=== PATIENT | female | born 1960 | race Caucasian/White ===

== ENCOUNTER → 2023-05-15 14:26 | Outpatient (CLI) | payer OTHER, SELFPAY ==
[2023-05-15 15:23] LABS: Alanine Aminotransferase 19 IU/L (<35); Albumin 4.4 g/dL (3.5-5.0); Albumin Globulin Ratio 1.3 (1.0-2.8); Alkaline Phosphatase 78 U/L (38-126); Aspartate Aminotransferase 31 IU/L (14-36); BUN Creatinine Ratio 30.9 (6-22); Bilirubin Total 0.8 mg/dL (0.2-1.3); Blood Urea Nitrogen 21 mg/dL (7-17); Calcium 9.5 mg/dL (8.4-10.2); Carbon Dioxide 26 mmol/L (22-32); Chloride 106 mmol/L (98-107); Estimated Glomerular Filt Rate > 60 mL/min (>60); Globulin 3.3 g/dL (1.7-4.1); Glucose 95 mg/dL (80-110); HEMOLYSIS < 15 (0-50); Potassium 4.2 mmol/L (3.4-5.1); Sodium 138 mmol/L (137-145); Total Protein 7.7 g/dL (6.3-8.2)
[2023-05-17 17:05] LABS: HIV 1 & 2 Ab/Ag 4th Gen Combo NEGATIVE (NEGATIVE); Hep C Virus Ab w/Reflex Quant NEGATIVE s/c (NEGATIVE)
== END ==
LOC: LAB 14:27
PROVIDERS: PCP Family Medicine; Referring Provider Family Medicine; Visit Provider Family Medicine
DX: Z00.00 Encounter for general adult medical examination without abnormal findings (principal); Z79.890 Hormone replacement therapy; Z90.710 Acquired absence of both cervix and uterus
CPT/HCPCS: 36415; 80053; 86803; 87389

== ENCOUNTER 2024-06-18 11:30 | Outpatient (RCR) | payer MEDICARE, OTHER, SELFPAY ==
--- NOTE | 2024-04-02 13:48 | OT.OPPOC ---
Physical, Occupational & Speech Therapy At [facility] Elizabeth Wolf [id number] 1960 Visit Care Team Role Provider Type Carly Pena MD Family Provider Physician Primary Care Provider Address: [address] [facility], [address] Fax: Max Kelley MD Attending Provider Physician Referring Provider Address: [address] [place] [address], [address] Occupational Therapy Plan of Care OT Outpatient Adult Evaluation Start: 04/02/24 10:48 Freq: Status: Active Protocol: Document 04/02/24 10:49 JELANI (Rec: 04/02/24 13:46 JELANI [id number]) General Information - Adult Visit Information Visit Number 1 Plan of Care Dates 04/02/24 - 05/28/24 Insurance Information Medicare Session Time Visit Start Date 04/02/24 Visit Start Time 10:45 Visit Stop Time 11:30 Setting Treatment Setting Outpatient Care Visit Type Note Type Initial Evaluation Referral Referring Physician Max Kelley Reason for Referral OA B 1st CMC, OA B wrist Identification Identification Confirmed Yes Identification Confirmed By name, MR Medical Information Medical History OA, fibromyalgia, headaches, jaw reconstruction sx, R medial knee sx, ankle/heel sx Patient Questionnaires Quick Dash- Upper Extremity Quick Dash UE Score 40.9 Quick Dash UE Impairment 40 to 59% Impaired (Score 40- 59) Quick Dash- Work and Sports Modules Quick Dash W&S Score W 50, S 62.5 Quick Dash Work and Sport Impairment 60 to 79% Impaired (Score 60- 79) Goals Objective Measurements Objective Measurements AROM 1st digit: IP R +10 to 42 , L +10 to 61; MP R -12 to 70, L 0 to 72; CMC PA R 35, L 40; CMC RA R 35, L 45 Wrist WFL all planes of mvmt Alfa measure: opposition R 10/10 (c p!), L 10/10 (c p!); retroposition R 1/4 (c p!), L 2/4 (c p!) Vilma R +, L - Froment's R +, L + Grind test R - L - UCL no laxity noted CMC no laxity noted, p! with assessing B Drapery And Upholstery Estimator: R 37, 37, 42 (avg 38.7#) ; L 35, 35, 35 (avg 35#) Pinch: lateral R 8#, L 8#; pincer R 3#, L 4#; 3 jaw R 4#, L 5.5# Treatment Treatment Pt educated on the importance of proper joint alignment. Pt has reduced webspacing, tx consisted of web space release . Pt educated on how to perform manually or with a clip. Pt should build up to 3- 5 minute hold on both hands. Pt then educated on web space release for skin and fascia, to be repeated 5-10 times. Finally pt performs butterfly retproposition mobilization to be held 3-5 minutes. Short Term Goals Short Term Goals 1. Pt will be I with initial HEP 2. Pt will improve retroposition by 1 grade for improved pain free use of thumb. 3. Pt will increase overall ROM of CMC by 10 deg B for improved grasping. 4. Pt will report no pain with opposition Draw Frame Runner Goals Draw Frame Runner Goals 1. Pt will be I with advanced thumb stability HEP 2. Pt will improve retropostion by 2 grade for improved pain free use of thumb. 3. Pt will increase increase overall ROM of CMC by 20 deg of movement B for improved object manipulation. 4. Pt will report improved perceived function with QuickDash by 15 points or better. 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 Pt reports having B cortisone injections 6 weeks ago. Pt reports relief last three weeks until she had her first client. Pt reports that she has constant pain and describes her pain as constant and at times stabbing. At times pt?s pain cant? be ignored (08/26) and is otherwise 1-2/10. 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 Pt also enjoys weight lifting and yoga . Pt weight lifts both with free weights and weighted machine. She reports having to change her hand position with many weighted activities as she is not able to grab around the bars. Pt reports difficulty with using her hands for all household and BADL tasks. See above for perceived limitations with respect to QuickDash. Pt reports having no difficulty with typing tasks. On observation, pt?s B thumbs have increased CMC adduction, MCP hyper-extension and IP hyper-extension. When taking goniometric measurements, pt self corrects initial hyper- extension position. Pt is tender on palpation of entire CMC joint B with R>L for p!. Pt has significant limitation in retroposition B with R > L. Pts 1st metacarpal seems to have subluxed volarly on trapezium. Skilled OT services are appropriate to assist pt in improved thumb stability and joint mechanics , educate on activity modification and taping or splint wearing, joint mobilization, strengthening, neuromuscular re-education, pain mgmt., and improved BADL/ IADL tasks. Reviewed with Patient Goals,Home Exercise Program Patient Understanding Excellent Plan Length of treatment (weeks) 8 Plan of Care Start Date 04/02/24 Plan of Care End Date 05/28/24 Treatment Frequency Twice a Week Treatment Duration 45 Minutes Therapeutic Contents Active Range of Motion,Client Education,Functional Activities,Home Exercise Program,Joint Protection, Manual Therapy,Education, Neuromuscular Re-Education, Orthosis,Self-Care,Splinting, Stretching/Flexibility Activities,Therapeutic Activities,Therapeutic Exercises,Modalities Modalities As Needed Types of Modalities Cyrotherapy Additional Types of Modalities PB Patient Instruction Home Exercise Program,Plan of Care,Questions/Concerns Functional Wrist/Hand Scan Hand Side Sensory Assessment Sensory Profile2 Electronically Signed by: Leonela Gardiner OT 04/02/24 3428 If you are in agreement with this Plan of Care, please return a signed and dated copy. I have reviewed this Plan of Care and certify that the skilled therapy services above are required to meet the patient?s needs. Physician Signature Date Printed Name and Credentials Clinical Instructor Signature Printed Name and Credentials
--- NOTE | 2024-04-09 11:16 | OT.OP.TRT ---
Visit Care Team Role Provider Type Carly Pena MD Family Provider Physician Primary Care Provider Specialty: Family Practice TUTORING ASSISTANT Address: [facility], [place], [address] Fax: Email: [email or web address] Max Kelley MD Attending Provider Physician Referring Provider Specialty: Orthopedics Orthopedic Surgery Address: [address] [place] [address], [address] Email: [email or web address] Occupational Therapy Treatment Note OT Outpatient Treatment Note - Adult Start: 04/02/24 10:48 Freq: Status: Active Protocol: Document 04/09/24 08:58 JELANI (Rec: 04/09/24 11:15 GRANTLUIS FALEKMARISELA [id number]) OT Outpatient Adult Treatment Note Session Time Visit Start Date 04/09/24 Visit Start Time 09:00 Visit Stop Time 09:45 Visit Information Visit Number 2 Plan of Care Dates 04/02/24 - 05/28/24 Insurance Information Medicare Setting Treatment Setting Outpatient Care Visit Type Note Type Treatment Note - Subjective Identification Type Name Identification Reconciled With Medical Record Observations Pt reports she has been doing her exercises. She reports having pain with butterfly retroposition. After re- education pt states I may have been doing it wrong. I had a two hour facial which is my most difficult facial. I notice I use my left phone almost exclusively on cell phone. Chief Complaint(s) Loss of Motion/Stiffness,Pain Effect on Activity,Restricts - Objective Short Term Goals 1. Pt will be I with initial HEP 2. Pt will improve retroposition by 1 grade for improved pain free use of thumb. 3. Pt will increase overall ROM of CMC by 10 deg B for improved grasping. 4. Pt will report no pain with opposition Executive Personal Assistant Goals 1. Pt will be I with advanced thumb stability HEP 2. Pt will improve retropostion by 2 grade for improved pain free use of thumb. 3. Pt will increase increase overall ROM of CMC by 20 deg of movement B for improved object manipulation. 4. Pt will report improved perceived function with QuickDash by 15 points or better. - Exercises 3 Descriptor retroposition mobilization king reinier Bañuelos x 3 minutes 2 Descriptor web space: web space to web space release with active stretch x10 B 1 Descriptor stability: 1st DI rubber band 30x B Manual Therapy Manual Therapy B thumb adductor STM, grade II CMC distraction and oscillation for pain relief, PROM B thumb CMC into palmar abduction and radial abduction as tolerated - Assessment Patient Response to Treatment Excellent Rehabilitation Potential Good Impairments Identified ADLs,Body Mechanics, Coordination/Dexterity, Flexibility,Functional Activities,Pain,Weakness,Range of Motion,Meaningful Activities,Stiffness,Soft Tissue Mobility Progress Towards Goals Good Progress Assessment of Improvement OT began educating pt on activity modification and splinting vs taping options. 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 She is willing to consider both for task specific uses like when doing yoga or weight training. Pt was performing butterfly mobilization with excessive force following some discussion with pt. OT asked pt to hold this exercises and instead perform kerry reinier mobilization until OT can further review correct performance of butterfly. OT reviewed pts HEP. Cont per established POC. Reviewed with Patient/Caregiver Goals Patient/Caregiver Understanding Good - Plan Therapy Recommendations Continue with Current Program Amount of Therapy Recommended 2 Months Frequency of Treatment Twice a Week Length of Session 45 Minutes Therapeutic Contents Active Range of Motion,Client Education,Functional Activities,Home Exercise Program,Joint Protection, Manual Therapy,Education, Neuromuscular Re-Education, Orthosis,Self-Care,Splinting, Stretching/Flexibility Activities,Therapeutic Activities,Therapeutic Exercises,Modalities Modalities As Needed Types of Modalities Cyrotherapy Additional Types of Modalities PB
--- NOTE | 2024-04-11 13:10 | OT.OP.TRT ---
Visit Care Team Role Provider Type Carly Pena MD Family Provider Physician Primary Care Provider Specialty: Family Practice CONSTRUCTION GRIP Address: [facility] [place], [address] Fax: Email: [email or web address] Max Kelley MD Attending Provider Physician Referring Provider Specialty: Orthopedics Orthopedic Surgery Address: [address] [place] [address], [address] Email: [email or web address] Occupational Therapy Treatment Note OT Outpatient Treatment Note - Adult Start: 04/02/24 10:48 Freq: Status: Active Protocol: Document 04/11/24 10:49 JELANI (Rec: 04/11/24 13:10 JELANI [id number]) OT Outpatient Adult Treatment Note Session Time Visit Start Date 04/11/24 Visit Start Time 10:45 Visit Stop Time 10:25 - Subjective Identification Type Name Identification Reconciled With Medical Record Observations On 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 Pt reports the combination of therapy and the facial resulted in increased pain. Pt reports pain at worse during today's tx at 3-4/10 with R>L. Chief Complaint(s) Loss of Motion/Stiffness,Pain Effect on Activity,Restricts - Objective Short Term Goals 1. Pt will be I with initial HEP 2. Pt will improve retroposition by 1 grade for improved pain free use of thumb. 3. Pt will increase overall ROM of CMC by 10 deg B for improved grasping. 4. Pt will report no pain with opposition Care Home Goals 1. Pt will be I with advanced thumb stability HEP 2. Pt will improve retropostion by 2 grade for improved pain free use of thumb. 3. Pt will increase increase overall ROM of CMC by 20 deg of movement B for improved object manipulation. 4. Pt will report improved perceived function with QuickDash by 15 points or better. - Treatment 2 Descriptor education: OT educates pt on splint options, primarily OA CMC splint and ring splints for other IP concerns of pt. 1 Descriptor OT educates pt on kinesio taping strategy options for improved stability at CMC. 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 OT educated pt on kinesio tape, wearing schedule, how to self apply, and how to safely remove. On R side, OT applied more extensive taping technique. 1 wide kineso tape 12 long applied starting at dorsal CMC, 25% stretch along CMC joint line to start of web space, no stretch from webspace to rejoining tape origin. Then hand placed in c shape with slight ulnar deviation at tape had 25% stretch ending mid forearm. A second 1 wide 10 strip applied at bace of CMC volarly ending mid forearm with 25% stretch. L CMC simple taping strategy with two 1 wide strips 4 long, OT applies first strip strating at dorsal CMC, 50-75% stretch along CMC joint line while hand held in c position. OT educated pt and pt applied second piece of tape with min A. Exercises 3 Descriptor retroposition mobilization butterfly B x 3 minutes 2 Descriptor web space: 1 Descriptor stability: Manual Therapy Manual Therapy B thumb adductor STM, grade II CMC distraction and oscillation for pain relief, PROM B thumb CMC into palmar abduction and radial abduction as tolerated - Assessment Patient Response to Treatment Excellent Rehabilitation Potential Good Impairments Identified ADLs,Body Mechanics, Coordination/Dexterity, Flexibility,Functional Activities,Pain,Weakness,Range of Motion,Meaningful Activities,Stiffness,Soft Tissue Mobility Progress Towards Goals Good Progress Assessment of Improvement OT re-discussed taping options with pt, due to pain following last tx and facial client, pt agreed to try both a simple and more advanced taping strategy to see if either will provide some relief and stability. OT eduates pt thoroughly on all aspects of kinesio taping and proviced hand outs and instructions on how to self tape in needed. Pt reports some immediate comfort following taping. Following taping pt performed strictly supervised butterfly retroposition mobilization, pt c/o increased pain at CMC following this. Pt notes that she gets distracted and moves increasing the pressure. Pt to perform kerry reinier instead moving forward for improved retroposition. Pt reports understanding benefit of STM for adductor release to improve web spacing, but also reports increased pain following STM at 3-4/10. Pt's pain reduces within a few minutes following. OT plans to discuss activity modification and splinting options further with pt in next several treatments. Cont per established POC. Reviewed with Patient/Caregiver Goals Patient/Caregiver Understanding Good - Plan Therapy Recommendations Continue with Current Program Amount of Therapy Recommended 2 Months Frequency of Treatment Twice a Week Length of Session 45 Minutes Therapeutic Contents Active Range of Motion,Client Education,Functional Activities,Home Exercise Program,Joint Protection, Manual Therapy,Education, Neuromuscular Re-Education, Orthosis,Self-Care,Splinting, Stretching/Flexibility Activities,Therapeutic Activities,Therapeutic Exercises,Modalities Modalities As Needed Types of Modalities Cyrotherapy Additional Types of Modalities PB
--- NOTE | 2024-04-28 09:58 | OT.OP.TRT ---
Visit Care Team Role Provider Type Carly Pena MD Family Provider Physician Primary Care Provider Specialty: Family Practice DEVELOPMENT ADVISOR Address: [address], [place], [address] Fax: Email: [email or web address] Max Kelley MD Attending Provider Physician Referring Provider Specialty: Orthopedics Orthopedic Surgery Address: [address] [place] [address], [address] Email: [email or web address] Occupational Therapy Treatment Note OT Outpatient Treatment Note - Adult Start: 04/02/24 10:48 Freq: Status: Active Protocol: Document 04/28/24 09:00 GRANTSHORTY (Rec: 04/28/24 09:58 GRANTLUIS FAJIT [id number]) OT Outpatient Adult Treatment Note Session Time Visit Start Date 04/28/24 Visit Start Time 09:00 Visit Stop Time 09:45 Visit Information Visit Number 4 Plan of Care Dates 04/02/24 - 05/28/24 Insurance Information Medicare Setting Treatment Setting Outpatient Care Visit Type Note Type Treatment Note - Subjective Identification Type Name Identification Reconciled With Medical Record Observations There were a few days that were bad but overall it hasn't been bad. Pt reports it's been difficult with doing weights, such as doing a chest press and curls. I find myself adjusting. I can manage it. Pt reports that she also has pain when performing downward dog position. Pt tried kinesio tape for several days. She reports that it was peeling up and became an annoyance. Pt reports that if she tries it again, she will do the short version. Pt denies pain at start and end of tx. Chief Complaint(s) Loss of Motion/Stiffness,Pain Effect on Activity,Restricts - - Treatment 1 Descriptor education: OT educates pt on splint options, primarily OA CMC splint. OT also educates pt on possible modifications for desired exercise tasks ( weight lifting and yoga). Exercises 3 Descriptor retroposition mobilization king reinier B x 4 minutes 2 Descriptor web space: web space to web space release with active stretch x5 B 1 Descriptor stability: closed chain palmar abd x 30 B CMC stabilization open mouth position x 30 B 1st DI rubber band x 30 B Manual Therapy Manual Therapy B thumb adductor STM, grade II CMC distraction and oscillation for pain relief, PROM B thumb CMC into palmar abduction and radial abduction as tolerated - Assessment Patient Response to Treatment Excellent Rehabilitation Potential Good Impairments Identified ADLs,Body Mechanics, Coordination/Dexterity, Flexibility,Functional Activities,Pain,Weakness,Range of Motion,Meaningful Activities,Stiffness,Soft Tissue Mobility Progress Towards Goals Good Progress Assessment of Improvement OT educated pt on pre fabricated splint/brace options for improved support of her thumb. OT primarily recommends CMC OA splint. Pt appears interested in ordering these for daily use. OT discussed that initially she can wear them for all daily activities, and that over time the goal would be to wear them prn instead. Pt verbalized understanding. Pt requires occasional vc/tc to perform exercises with correct form and to isolate desired movement pattern. OT issued pt additional ex for HEP, specifically thumb CMC open mouth stabilization and 1st DI rubber band ex. OT will reassess pt's I with these. Pt continues to be appropriate for skilled OT services. Cont per established POC. Reviewed with Patient/Caregiver Goals Patient/Caregiver Understanding Good - Plan Therapy Recommendations Continue with Current Program Amount of Therapy Recommended 2 Months Frequency of Treatment Twice a Week Length of Session 45 Minutes Therapeutic Contents Active Range of Motion,Client Education,Functional Activities,Home Exercise Program,Joint Protection, Manual Therapy,Education, Neuromuscular Re-Education, Orthosis,Self-Care,Splinting, Stretching/Flexibility Activities,Therapeutic Activities,Therapeutic Exercises,Modalities Modalities As Needed Types of Modalities Cyrotherapy Additional Types of Modalities PB
--- NOTE | 2024-05-05 09:49 | OT.OP.TRT ---
Visit Care Team Role Provider Type Carly Pena MD Family Provider Physician Primary Care Provider Specialty: Family Practice VOCATIONAL TECHNICAL EDUCATION TEACHER Address: [facility] [place], [address] Fax: Email: [email or web address] Max Kelley MD Attending Provider Physician Referring Provider Specialty: Orthopedics Orthopedic Surgery Address: [address] [place] [address], [address] Email: [email or web address] Occupational Therapy Treatment Note OT Outpatient Treatment Note - Adult Start: 04/02/24 10:48 Freq: Status: Active Protocol: Document 05/05/24 09:00 JELANI (Rec: 05/05/24 08:49 JELANI [id number]) OT Outpatient Adult Treatment Note Session Time Visit Start Date 05/05/24 Visit Start Time 09:00 Visit Stop Time 09:45 Visit Information Visit Number 09/01 Plan of Care Dates 04/02/24 - 05/28/24 Insurance Information Medicare Setting Treatment Setting Outpatient Care Visit Type Note Type Treatment Note - Subjective Identification Type Name Identification Reconciled With Medical Record Observations I think I'm better and better . I did yoga on Sunday. I went into a side plank. I just stayed in it and let it open up. I was able to do downward dog with a little pain, but I can remember when it was unbearable. Pt reports to be performing her HEP religiously. Sometimes I have pain just petting my big monster dog. Chief Complaint(s) Loss of Motion/Stiffness,Pain Effect on Activity,Restricts - Objective Short Term Goals 1. Pt will be I with initial HEP MET 04/30/24 2. Pt will improve retroposition by 1 grade for improved pain free use of thumb. 3. Pt will increase overall ROM of CMC by 10 deg B for improved grasping. 4. Pt will report no pain with opposition MET 05/05/24 Mcfp Goals 1. Pt will be I with advanced thumb stability HEP 2. Pt will improve retropostion by 2 grade for improved pain free use of thumb. 3. Pt will increase increase overall ROM of CMC by 20 deg of movement B for improved object manipulation. 4. Pt will report improved perceived function with QuickDash by 15 points or better. - Treatment 1 Descriptor education: Exercises 3 Descriptor retroposition mobilization ( butterfly no longer causes pain) butterfly x 3 minutes Side Both 2 Descriptor web space: web space to web space release (30 sec holds) with active stretch x3 contract relax into radial abd (5-10 sec hold) x 6 reps Side Both 1 Descriptor stability: 1st DI rubber band x [address] and hold during opposition (due to middle joing collapse) x5 each palmar abd with rubber band x25 EPB with rubber band x 15 Side Both Manual Therapy Manual Therapy B thumb adductor STM, grade II CMC distraction and oscillation for pain relief, PROM B thumb CMC into palmar abduction and radial abduction as tolerated - Assessment Patient Response to Treatment Excellent Rehabilitation Potential Good Impairments Identified ADLs,Body Mechanics, Coordination/Dexterity, Flexibility,Functional Activities,Pain,Weakness,Range of Motion,Meaningful Activities,Stiffness,Soft Tissue Mobility Progress Towards Goals Good Progress Assessment of Improvement Pt continues to be pleasant and cooperative. Pt continues to have a tight web space and decreased retroposition. She is now able to tolerate butterfly mobilization and has been upgraded from [employer] to . OT added contract relax exercise for improved web space, place hold exercises for reduced collapsing during pinching tasks, and several stability exercises with rubber bands for general mechanics. Pt demonstrates oppositon ( kapandji 10/10 B) without pain , meeting STG #4. Pt continues to be appropriate for skilled OT services to progress toward improved function and goals. Cont per established POC. Reviewed with Patient/Caregiver Goals Patient/Caregiver Understanding Good - Plan Therapy Recommendations Continue with Current Program Amount of Therapy Recommended 2 Months Frequency of Treatment Twice a Week Length of Session 45 Minutes Therapeutic Contents Active Range of Motion,Client Education,Functional Activities,Home Exercise Program,Joint Protection, Manual Therapy,Education, Neuromuscular Re-Education, Orthosis,Self-Care,Splinting, Stretching/Flexibility Activities,Therapeutic Activities,Therapeutic Exercises,Modalities Modalities As Needed Types of Modalities Cyrotherapy Additional Types of Modalities PB
--- NOTE | 2024-05-07 09:53 | OT.OP.TRT ---
Visit Care Team Role Provider Type Carly Pena MD Family Provider Physician Primary Care Provider Specialty: Family Practice MORTGAGE COORDINATOR Address: [facility] [place], [address] Fax: Email: [email or web address] Max Kelley MD Attending Provider Physician Referring Provider Specialty: Orthopedics Orthopedic Surgery Address: [address] [place] [address], [id number] Email: [email or web address] Occupational Therapy Treatment Note OT Outpatient Treatment Note - Adult Start: 04/02/24 10:48 Freq: Status: Active Protocol: Document 05/07/24 09:03 JELANI (Rec: 05/07/24 09:07 JELANI [id number]) OT Outpatient Adult Treatment Note Session Time Visit Start Date 05/07/24 Visit Start Time 09:00 Visit Stop Time 09:45 - Subjective Identification Type Name Identification Reconciled With Medical Record Observations I am having systemic pain. I think it is the weather. Driving hurt today, range of motion hurts today, and it's real tender in here (touching thenar eminence). Following tx pt states my thumbs feel much better. Chief Complaint(s) Loss of Motion/Stiffness,Pain Effect on Activity,Restricts - Objective Short Term Goals 1. Pt will be I with initial HEP MET 04/30/24 2. Pt will improve retroposition by 1 grade for improved pain free use of thumb. 3. Pt will increase overall ROM of CMC by 10 deg B for improved grasping. 4. Pt will report no pain with opposition MET 05/05/24 Prison Goals 1. Pt will be I with advanced thumb stability HEP 2. Pt will improve retropostion by 2 grade for improved pain free use of thumb. 3. Pt will increase increase overall ROM of CMC by 20 deg of movement B for improved object manipulation. 4. Pt will report improved perceived function with QuickDash by 15 points or better. - Exercises 3 Descriptor retroposition mobilization ( butterfly no longer causes pain) butterfly x 3 minutes Side Both 2 Descriptor web space: web space to web space release (30 sec holds) with active stretch x3 contract relax into radial abd (5-10 sec hold) x 6 reps Side Both 1 Descriptor stability: 1st DI rubber band x [address] and hold during opposition (due to middle joing collapse) x5 each palmar abd with rubber band x25 (L side only due to pain on R) EPB with rubber band x Side Both Manual Therapy Manual Therapy B thumb adductor STM, grade II CMC distraction and oscillation for pain relief, PROM B thumb CMC into palmar abduction and radial abduction as tolerated - Assessment Patient Response to Treatment Excellent Rehabilitation Potential Good Impairments Identified ADLs,Body Mechanics, Coordination/Dexterity, Flexibility,Functional Activities,Pain,Weakness,Range of Motion,Meaningful Activities,Stiffness,Soft Tissue Mobility Progress Towards Goals Good Progress Assessment of Improvement Pt continues to be pleasant and cooperative and eager to participate in therapy. Pt continues to have a limited web space, tight adductors, and decreased retroposition, benefiting from manual therapy and joint mobilization technique (butterfly). EPB exercises was not performed today due to pts c/o increased pain. Pt tolerates contract relax well for improved web space, and is able to demonstrate decreased collapsing with place hold exercises, with R being better than L. Pt continues to be appropriate for skilled OT services to progress toward improved function and goals. Cont per established POC. Reviewed with Patient/Caregiver Goals Patient/Caregiver Understanding Good - Plan Therapy Recommendations Continue with Current Program Amount of Therapy Recommended 2 Months Frequency of Treatment Twice a Week Length of Session 45 Minutes Therapeutic Contents Active Range of Motion,Client Education,Functional Activities,Home Exercise Program,Joint Protection, Manual Therapy,Education, Neuromuscular Re-Education, Orthosis,Self-Care,Splinting, Stretching/Flexibility Activities,Therapeutic Activities,Therapeutic Exercises,Modalities Modalities As Needed Types of Modalities Cyrotherapy Additional Types of Modalities PB
--- NOTE | 2024-05-12 09:59 | OT.OP.TRT ---
Visit Care Team Role Provider Type Carly Pena MD Family Provider Physician Primary Care Provider Specialty: Family Practice SUPERVISOR LOGGING Address: [facility] [place], [address] Fax: Email: [email or web address] Max Kelley MD Attending Provider Physician Referring Provider Specialty: Orthopedics Orthopedic Surgery Address: [address] [place] [address], [address] Email: [email or web address] Occupational Therapy Treatment Note OT Outpatient Treatment Note - Adult Start: 04/02/24 10:48 Freq: Status: Active Protocol: Document 05/12/24 08:57 GRANTLUIS FALEKMARISELA (Rec: 05/12/24 08:59 GRANTLUIS FAJIT [id number]) OT Outpatient Adult Treatment Note Session Time Visit Start Date 05/12/24 Visit Start Time 09:00 Visit Stop Time 09:50 Visit Information Visit Number 11/01 Plan of Care Dates 04/02/24 - 05/28/24 Insurance Information Medicare Setting Treatment Setting Outpatient Care Visit Type Note Type Treatment Note - Subjective Identification Type Name Identification Reconciled With Medical Record Observations I did a facial, while I was doing it, I could just feel the pain. I tried to use my knuckles more. This morning I had my hand on top of the steering wheel and it almost made me cry out. Pt reports performing her exercises regularly. Pt denies any pain at start and end of tx. Chief Complaint(s) Loss of Motion/Stiffness,Pain Effect on Activity,Restricts - Objective Objective Measurements CMC PA R 35, L 43; CMC RA R 38 , L 45 Short Term Goals 1. Pt will be I with initial HEP MET 04/30/24 2. Pt will improve retroposition by 1 grade for improved pain free use of thumb. 3. Pt will increase overall ROM of CMC by 10 deg B for improved grasping. 4. Pt will report no pain with opposition MET 05/05/[address] [employer] Installer Goals 1. Pt will be I with advanced thumb stability HEP 2. Pt will improve retropostion by 2 grade for improved pain free use of thumb. 3. Pt will increase increase overall ROM of CMC by 20 deg of movement B for improved object manipulation. 4. Pt will report improved perceived function with QuickDash by 15 points or better. - Treatment 1 Descriptor education: OT discussed prefabricated splint options with pt. OT recommends a CMC OA splint for regular use B. 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 Ultimately, the goal is to have enough thumb stability that the splints would not be needed for daily wear and use. Pt verbalizes understanding. OT measured pt for CMC splints at pt request based on model pt had chosen on [employer]. Exercises 3 Descriptor retroposition mobilization ( butterfly no longer causes pain) butterfly x 3 minutes Side Both 2 Descriptor web space: Side Both 1 Descriptor stability: 1st DI rubber band x place and hold during opposition (due to middle joint collapse) 60 sec hold x [address] and hold with small clothespin (due to middle joint collapse) 60 sec hold x 3 R palmar abd with rubber band x EPB with rubber band x EPB closed chain with small ball x 10 B Side Both Manual Therapy Manual Therapy B thumb adductor STM, grade II CMC distraction and oscillation for pain relief, PROM B thumb CMC into palmar abduction and radial abduction as tolerated - Assessment Patient Response to Treatment Excellent Rehabilitation Potential Good Impairments Identified ADLs,Body Mechanics, Coordination/Dexterity, Flexibility,Functional Activities,Pain,Weakness,Range of Motion,Meaningful Activities,Stiffness,Soft Tissue Mobility Progress Towards Goals Good Progress Assessment of Improvement Pt continues to be pleasant and cooperative and eager to participate in therapy. Pt continues to have a limited web space, tight adductors, and decreased retroposition, benefiting from manual therapy and joint mobilization technique (butterfly). Pt demonstrates place hold exercises for reduced collapsing at middle joint well. Pt is able to maintain immediately on R hand. OT added small resistance clothespin for additional strengthening in this position on R. Pt is able to maintain non collapsed position on L side but only when performed in opposition and with initially being placed in the correct position. Pt can hold for 60 second stretches. Pt tolerated addition of EPB closed chain task. Pt has a difficult time isolating the movement on the L hand. Pt continues to be appropriate for skilled OT services to progress toward improved function and goals. Cont per established POC. Reviewed with Patient/Caregiver Goals Patient/Caregiver Understanding Good - Plan Therapy Recommendations Continue with Current Program Amount of Therapy Recommended 2 Months Frequency of Treatment Twice a Week Length of Session 45 Minutes Therapeutic Contents Active Range of Motion,Client Education,Functional Activities,Home Exercise Program,Joint Protection, Manual Therapy,Education, Neuromuscular Re-Education, Orthosis,Self-Care,Splinting, Stretching/Flexibility Activities,Therapeutic Activities,Therapeutic Exercises,Modalities Modalities As Needed Types of Modalities Cyrotherapy Additional Types of Modalities PB
--- NOTE | 2024-05-14 10:29 | OT.OP.TRT ---
Visit Care Team Role Provider Type Carly Pena MD Family Provider Physician Primary Care Provider Specialty: Family Practice TIGHTENER Address: [facility] [place], [address] Fax: Email: [email or web address] Max Kelley MD Attending Provider Physician Referring Provider Specialty: Orthopedics Orthopedic Surgery Address: [address] [place] [address], [address] Email: [email or web address] Occupational Therapy Treatment Note OT Outpatient Treatment Note - Adult Start: 04/02/24 10:48 Freq: Status: Active Protocol: Document 05/14/24 09:02 JELANI (Rec: 05/14/24 09:04 JELANI [id number]) OT Outpatient Adult Treatment Note Session Time Visit Start Date 05/14/24 Visit Start Time 09:47 Visit Stop Time 10:23 Visit Information Visit Number 12/02 Plan of Care Dates 04/02/24 - 05/28/24 Insurance Information Medicare Setting Treatment Setting Outpatient Care Visit Type Note Type Treatment Note - Subjective Identification Type Name Identification Reconciled With Medical Record Observations Pt reports she has ordered two CMC splints and they will be arriving later today. Pt reports that she can tell she has been working her hands and they are a little achey. Pt lifted weights comfortably yesterday and she plans on doing yoga today. Chief Complaint(s) Loss of Motion/Stiffness,Pain Effect on Activity,Restricts - Objective Short Term Goals 1. Pt will be I with initial HEP MET 04/30/24 2. Pt will improve retroposition by 1 grade for improved pain free use of thumb. 3. Pt will increase overall ROM of CMC by 10 deg B for improved grasping. 4. Pt will report no pain with opposition MET 05/05/24 Custodial Goals 1. Pt will be I with advanced thumb stability HEP 2. Pt will improve retropostion by 2 grade for improved pain free use of thumb. 3. Pt will increase increase overall ROM of CMC by 20 deg of movement B for improved object manipulation. 4. Pt will report improved perceived function with QuickDash by 15 points or better. - Treatment 1 Descriptor education: OT reminded pt to perform her web space openers and retroposition prior to donning splints. Exercises 3 Descriptor retroposition mobilization ( butterfly no longer causes pain) butterfly x 3 minutes Side Both 2 Descriptor web space: web space to web space release (30 sec holds) with active stretch x3 contract relax into radial abd [ End ] Side Both 1 Descriptor stability: 1st DI rubber band x [address] place and hold during opposition (due to middle joint collapse) 60 sec hold x [address] and hold with small clothespin (due to middle joint collapse) 60 sec hold x 3 R palmar abd with rubber band x 30 B EPB with rubber band x EPB closed chain with small ball x 10 B Side Both Manual Therapy Manual Therapy B thumb adductor STM, grade II CMC distraction and oscillation for pain relief, PROM B thumb CMC into palmar abduction and radial abduction as tolerated - Assessment Patient Response to Treatment Excellent Rehabilitation Potential Good Impairments Identified ADLs,Body Mechanics, Coordination/Dexterity, Flexibility,Functional Activities,Pain,Weakness,Range of Motion,Meaningful Activities,Stiffness,Soft Tissue Mobility Progress Towards Goals Good Progress Assessment of Improvement Pt continues to be pleasant and cooperative and eager to participate in therapy. Pt presents with limited web space, tight adductors, and decreased retroposition, benefiting from manual therapy and joint mobilization techniques. Pt demonstrates place hold exercises for reduced collapsing at middle joint with improved control today. Pt is able to maintain non-collapsed position B today , pt unable to maintain on L side while holding something at the same time (ex clothespin). OT added palmar abd rubber band task to pts HEP. Pt performs today with min vcs for correct placement of rubber band and isolation of mvmt. OT reminded pt of education provided last tx concerning preparing her hand prior to apply CMC OA braces. Pt expects them to arrive today. Pt continues to be appropriate for skilled OT services to progress toward improved function and goals. Cont per established POC. Reviewed with Patient/Caregiver Goals Patient/Caregiver Understanding Good - Plan Therapy Recommendations Continue with Current Program Amount of Therapy Recommended 2 Months Frequency of Treatment Twice a Week Length of Session 45 Minutes Therapeutic Contents Active Range of Motion,Client Education,Functional Activities,Home Exercise Program,Joint Protection, Manual Therapy,Education, Neuromuscular Re-Education, Orthosis,Self-Care,Splinting, Stretching/Flexibility Activities,Therapeutic Activities,Therapeutic Exercises,Modalities Modalities As Needed Types of Modalities Cyrotherapy Additional Types of Modalities PB
--- NOTE | 2024-05-19 09:56 | OT.OP.TRT ---
Visit Care Team Role Provider Type Carly Pena MD Family Provider Physician Primary Care Provider Specialty: Family Practice CLINIC BUSINESS MANAGER Address: [address] [place], [address] Fax: Email: [email or web address] Max Kelley MD Attending Provider Physician Referring Provider Specialty: Orthopedics Orthopedic Surgery Address: [address] [place] [address], [address] Email: [email or web address] Occupational Therapy Treatment Note OT Outpatient Treatment Note - Adult Start: 04/02/24 10:48 Freq: Status: Active Protocol: Document 05/19/24 08:58 GRANTSHORTY (Rec: 05/19/24 09:55 GRANTLUIS FAJIT [id number]) OT Outpatient Adult Treatment Note Session Time Visit Start Date 05/19/24 Visit Start Time 08:58 Visit Stop Time 09:43 Visit Information Visit Number 01/01 Plan of Care Dates 04/02/24 - 05/28/24 Insurance Information Medicare Setting Treatment Setting Outpatient Care - Subjective Identification Type Name Identification Reconciled With Medical Record Observations Pt has been wearing her CMC splints for 10-12 hours daily. Pt chooses to put them on when she has cleaned up from dinner and wears them until the next morning. Sometimes she is wearing them during the daily. Pt reports she has forgotten to do her exercises prior to putting on splints. Chief Complaint(s) Loss of Motion/Stiffness,Pain Effect on Activity,Restricts - Objective Objective Measurements AROM 1st digit: IP R +12 to 64 , L +2 to 68; MP R +4 to 66, L +2 to 72; CMC PA R 35, L 43; CMC RA R 38, L 45 Kapandji measure: opposition R 10/10 (mild discomfort no pain), L 10/10 (no discomfort) Kapandji retroposition: R 2/4 (no pain), L 1.5/4 (c/o p!) Environmental Protection Forester: R 24, 20, 26 (avg 23.3#) ; L 26, 30, 20 (avg 25.3#) Pinch: lateral R 7#, L 6#; pincer R 4#, L 5#; 3 jaw R 5#, L 6# Short Term Goals 1. Pt will be I with initial HEP MET 04/30/24 2. Pt will improve retroposition by 1 grade for improved pain free use of thumb. PARTIALLY MET 05/19/24 3. Pt will increase overall ROM of CMC by 10 deg B for improved grasping. 4. Pt will report no pain with opposition MET 05/05/24 [facility] Goals 1. Pt will be I with advanced thumb stability HEP 2. Pt will improve retropostion by 2 grade for improved pain free use of thumb. 3. Pt will increase increase overall ROM of CMC by 20 deg of movement B for improved object manipulation. 4. Pt will report improved perceived function with QuickDash by 15 points or better. - Treatment 1 Descriptor education: OT reminded pt to perform her web space openers and retroposition prior to donning splints. Exercises 3 Descriptor retroposition mobilization ( butterfly no longer causes pain) Side Both 2 Descriptor web space: web space to web space release (30 sec holds) with active stretch x3 contract relax into radial abd 15 second hold x 3 reps [ End ] Side Both 1 Descriptor stability: 1st DI rubber band x [address] and hold with small clothespin (due to middle joint collapse) 60 sec hold x 3 B palmar abd with rubber band x 30 B EPB with rubber band x 30 B EPB closed chain with small ball x 10 B Side Both Manual Therapy Manual Therapy B thumb adductor STM, grade II CMC distraction and oscillation for pain relief, PROM B thumb CMC into palmar abduction and radial abduction as tolerated - Assessment Patient Response to Treatment Excellent Rehabilitation Potential Good Impairments Identified ADLs,Body Mechanics, Coordination/Dexterity, Flexibility,Functional Activities,Pain,Weakness,Range of Motion,Meaningful Activities,Stiffness,Soft Tissue Mobility Progress Towards Goals Good Progress Assessment of Improvement Pt continues to be pleasant and cooperative and eager to participate in therapy. Pt continues to have limited web space, tight adductors, and decreased retroposition, benefiting from manual therapy and joint mobilization techniques. Pt demonstrates place hold exercises for reduced collapsing at middle joint with improved control today, tolerating a small clothespin B for the first time. Pt continues to need occasional vcs for placement of rubber band during ex. OT reminded pt to perform exercises prior to donning CMC OA splint and recommends wearing splints during painful tasks. Pt verbalizes understanding. Pt continues to improve per established POC. Reviewed with Patient/Caregiver Goals Patient/Caregiver Understanding Good - Plan Therapy Recommendations Continue with Current Program Amount of Therapy Recommended 1 Month Comment 1-2x/wk Length of Session 45 Minutes Therapeutic Contents Active Range of Motion,Client Education,Functional Activities,Home Exercise Program,Joint Protection, Manual Therapy,Education, Neuromuscular Re-Education, Orthosis,Self-Care,Splinting, Stretching/Flexibility Activities,Therapeutic Activities,Therapeutic Exercises,Modalities Modalities As Needed Types of Modalities Cyrotherapy Additional Types of Modalities PB
--- NOTE | 2024-05-19 09:56 | OT.OPPN ---
Current Diagnoses Unilateral primary osteoarthritis of first carpometacarpal joint, unspecified hand (05/19/24) Primary osteoarthritis, right wrist (05/19/24) Primary osteoarthritis, left wrist (05/19/24) OT Progress Note OT Outpatient Progress Note - Adult Start: 04/02/24 10:48 Freq: Status: Active Protocol: Document 05/19/24 08:58 JELANI (Rec: 05/19/24 09:55 JELANI [id number]) OT Outpatient Adult Progress Note Session Time Visit Start Date 05/19/24 Visit Start Time 08:58 Visit Stop Time 09:43 Visit Information Visit Number 01/01 Plan of Care Dates 04/02/24 - 05/28/24 Insurance Information Medicare Setting Treatment Setting Outpatient Care - Subjective Identification Type Name Identification Reconciled With Medical Record Observations Pt has been wearing her CMC splints for 10-12 hours daily. Pt chooses to put them on when she has cleaned up from dinner and wears them until the next morning. Sometimes she is wearing them during the daily. Pt reports she has forgotten to do her exercises prior to putting on splints. Chief Complaint(s) Loss of Motion/Stiffness,Pain Effect on Activity,Restricts - Objective Objective Measurements AROM 1st digit: IP R +12 to 64 , L +2 to 68; MP R +4 to 66, L +2 to 72; CMC PA R 35, L 43; CMC RA R 38, L 45 [employer]andh[employer] measure: opposition R 10/10 (mild discomfort no pain), L 10/10 (no discomfort) Anthonyandhunter retroposition: R 2/4 (no pain), L 1.5/4 (c/o p!) [employer] Operator: R 24, 20, 26 (avg 23.3#) ; L 26, 30, 20 (avg 25.3#) Pinch: lateral R 7#, L 6#; pincer R 4#, L 5#; 3 jaw R 5#, L 6# Short Term Goals 1. Pt will be I with initial HEP MET 04/30/24 2. Pt will improve retroposition by 1 grade for improved pain free use of thumb. PARTIALLY MET 05/19/24 3. Pt will increase overall ROM of CMC by 10 deg B for improved grasping. 4. Pt will report no pain with opposition MET 05/05/24 Nursing Home Goals 1. Pt will be I with advanced thumb stability HEP 2. Pt will improve retropostion by 2 grade for improved pain free use of thumb. 3. Pt will increase increase overall ROM of CMC by 20 deg of movement B for improved object manipulation. 4. Pt will report improved perceived function with QuickDash by 15 points or better. - - Assessment Patient Response to Treatment Excellent Rehabilitation Potential Good Impairments Identified ADLs,Body Mechanics, Coordination/Dexterity, Flexibility,Functional Activities,Pain,Weakness,Range of Motion,Meaningful Activities,Stiffness,Soft Tissue Mobility Progress Towards Goals Good Progress Assessment of Improvement Pt continues to make improvement in functional use of B hands since beginning skilled OT services. Pt demonstrates a 24 deg total movement gain in R IP, 7 deg improvement in L IP flex, R improved retroposition by 1 level, and reduced pain with opposition from evaluation. Pt with increased pinch strengths Cj for pincer and 3 jaw. See objective section for specific details. Pt reports reduced pain with most daily tasks, including lifting weights and yoga. 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 Pt makes progress toward established POC. Reviewed with Patient/Caregiver Goals Patient/Caregiver Understanding Good - Plan Therapy Recommendations Continue with Current Program Amount of Therapy Recommended 1 Month Comment 1-2x/wk Length of Session 45 Minutes Therapeutic Contents Active Range of Motion,Client Education,Functional Activities,Home Exercise Program,Joint Protection, Manual Therapy,Education, Neuromuscular Re-Education, Orthosis,Self-Care,Splinting, Stretching/Flexibility Activities,Therapeutic Activities,Therapeutic Exercises,Modalities Modalities As Needed Types of Modalities Cyrotherapy Additional Types of Modalities PB If you are in agreement with this Plan of Care, please return a signed and dated copy. I have reviewed this Plan of Care and certify that the skilled therapy services above are required to meet the patient?s needs. Physician Signature Date Printed Name and Credentials Clinical Instructor Signature Printed Name and Credentials
--- NOTE | 2024-05-21 10:35 | OT.OP.TRT ---
Visit Care Team Role Provider Type Carly Pena MD Family Provider Physician Primary Care Provider Specialty: Family Practice BASEBALL COACH Address: [facility] [place], [address] Fax: Email: [email or web address] Max Kelley MD Attending Provider Physician Referring Provider Specialty: Orthopedics Orthopedic Surgery Address: [address] [place] [address], [id number] Email: [email or web address] Occupational Therapy Treatment Note OT Outpatient Treatment Note - Adult Start: 04/02/24 10:48 Freq: Status: Active Protocol: Document 05/21/24 09:45 JELANI (Rec: 05/21/24 10:35 JELANI [id number]) OT Outpatient Adult Treatment Note Session Time Visit Start Date 05/21/24 Visit Start Time 09:45 Visit Stop Time 10:30 Visit Information Visit Number 03/26 (10 previous) Plan of Care Dates 05/20/24 - 06/24/24 Insurance Information Medicare Visit Type Note Type Treatment Note - Subjective Identification Type Name Identification Reconciled With Medical Record Observations Pt reports that she started wearing her braces for 20 hours since our last treatment . Pt states she was able to wear them when doing yoga. She said she was able to hold downward dog position with less pain. She also lifted weights wearing her splints and reports it was less painful. Chief Complaint(s) Loss of Motion/Stiffness,Pain Effect on Activity,Restricts - Objective Short Term Goals 1. Pt will be I with initial HEP MET 04/30/24 2. Pt will improve retroposition by 1 grade for improved pain free use of thumb. PARTIALLY MET 05/19/24 3. Pt will increase overall ROM of CMC by 10 deg B for improved grasping. 4. Pt will report no pain with opposition MET 05/05/24 [facility] Goals 1. Pt will be I with advanced thumb stability HEP 2. Pt will improve retropostion by 2 grade for improved pain free use of thumb. 3. Pt will increase increase overall ROM of CMC by 20 deg of movement B for improved object manipulation. 4. Pt will report improved perceived function with QuickDash by 15 points or better. - Exercises 3 Descriptor retroposition mobilization: butterfly x 4 min B Side Both 2 Descriptor web space: web space to web space release (30 sec holds) with active stretch x3 contract relax into radial abd 15 second hold x 0 reps [ End ] Side Both 1 Descriptor stability: 1st DI rubber band (2 small bands) x [address] and hold with small clothespin (due to middle joint collapse) 15 sec hold x [address] and hold with graded clothespin (due to middle joint collapse) 15 sec hold x 5 R palmar abd with rubber band x 30 B EPB with rubber band x 30 B EPB closed chain with small ball x 10 B Side Both Manual Therapy Manual Therapy B thumb adductor STM, grade II CMC distraction and oscillation for pain relief, PROM B thumb CMC into palmar abduction and radial abduction as tolerated - Assessment Patient Response to Treatment Excellent Rehabilitation Potential Good Impairments Identified ADLs,Body Mechanics, Coordination/Dexterity, Flexibility,Functional Activities,Pain,Weakness,Range of Motion,Meaningful Activities,Stiffness,Soft Tissue Mobility Progress Towards Goals Good Progress Assessment of Improvement Pt continues to be pleasant and cooperative and eager to participate in therapy. Pt continues to have limited web space, tight adductors, and decreased retroposition, benefiting from manual therapy and joint mobilization techniques. Pt demonstrates place hold exercises for reduced collapsing at middle joint with improved control, tolerating a small clothespin for L side and increased to graded clothespin for the R. Pt tolerated a second rubber band with 1st DI exercises B today. Pt continues to need occasional vcs for right position and initiation of mvmt, particularly with EPB exercises and place hold. OT reminded pt to perform exercises prior to donning CMC OA splint and recommends wearing splints during painful tasks. Pt verbalizes understanding. Pt continues to improve per established POC. Reviewed with Patient/Caregiver Goals Patient/Caregiver Understanding Good - Plan Therapy Recommendations Continue with Current Program Amount of Therapy Recommended 1 Month Comment 1-2x/wk Length of Session 45 Minutes Therapeutic Contents Active Range of Motion,Client Education,Functional Activities,Home Exercise Program,Joint Protection, Manual Therapy,Education, Neuromuscular Re-Education, Orthosis,Self-Care,Splinting, Stretching/Flexibility Activities,Therapeutic Activities,Therapeutic Exercises,Modalities Modalities As Needed Types of Modalities Cyrotherapy Additional Types of Modalities PB
--- NOTE | 2024-05-26 10:31 | OT.OP.TRT ---
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 [place], [address] Fax: Email: [email or web address] Max Kelley MD Attending Provider Physician Referring Provider Specialty: Orthopedics Orthopedic Surgery Address: [address] [place] [address], [id number] Email: [email or web address] Occupational Therapy Treatment Note OT Outpatient Treatment Note - Adult Start: 04/02/24 10:48 Freq: Status: Active Protocol: Document 05/26/24 09:37 JELANI (Rec: 05/26/24 10:30 JELANI [id number]) OT Outpatient Adult Treatment Note Session Time Visit Start Date 05/26/24 Visit Start Time 09:37 Visit Stop Time 10:22 Visit Information Visit Number 04/26 (10 previous) Plan of Care Dates 05/20/24 - 06/24/24 Insurance Information Medicare Setting Treatment Setting Outpatient Care Visit Type Note Type Treatment Note - Subjective Identification Type Name Identification Reconciled With Medical Record Observations Pt reports that she woke Sunday morning with increased pain in B web spaces . Pt reports that she couldn't wear her braces because of increased pain, and has not returned to wearing them. Pt believes she may have kept her hands fisted that night due to some earlier stress. Pt reports having soreness at start of tx in B webspaces. Following tx, pt reports that her hands felt much looser, warmed up, and had less discomfort/soreness than start of tx. Chief Complaint(s) Loss of Motion/Stiffness,Pain Effect on Activity,Restricts - Objective Short Term Goals 1. Pt will be I with initial HEP MET 04/30/24 2. Pt will improve retroposition by 1 grade for improved pain free use of thumb. PARTIALLY MET 05/19/24 3. Pt will increase overall ROM of CMC by 10 deg B for improved grasping. 4. Pt will report no pain with opposition MET 05/05/24 [facility] Goals 1. Pt will be I with advanced thumb stability HEP 2. Pt will improve retropostion by 2 grade for improved pain free use of thumb. 3. Pt will increase increase overall ROM of CMC by 20 deg of movement B for improved object manipulation. 4. Pt will report improved perceived function with QuickDash by 15 points or better. - Treatment 1 Descriptor education: Exercises 3 Descriptor retroposition mobilization: butterfly x 3 min B Side Both 2 Descriptor web space: web space to web space release (30 sec holds) with active stretch x4 B contract relax into radial abd 15 second hold x 5 reps B [ End ] Side Both 1 Descriptor stability: 1st DI rubber band (2 small bands) x [address] and hold with small clothespin (due to middle joint collapse) 15 sec hold x L place and hold with graded clothespin (due to middle joint collapse) 15 sec hold x R palmar abd with rubber band x 30 B EPB with rubber band x 30 B EPB closed chain with small ball x 10 B Side Both Manual Therapy Manual Therapy B thumb adductor STM, grade II CMC distraction and oscillation for pain relief, PROM B thumb CMC into palmar abduction and radial abduction as tolerated - Assessment Patient Response to Treatment Excellent Rehabilitation Potential Good Impairments Identified ADLs,Body Mechanics, Coordination/Dexterity, Flexibility,Functional Activities,Pain,Weakness,Range of Motion,Meaningful Activities,Stiffness,Soft Tissue Mobility Progress Towards Goals Good Progress Assessment of Improvement Pt continues to be pleasant and cooperative and eager to participate in therapy. Pt presented with an increase in her usual limited web space and tight adductors, and decreased retroposition, benefiting from manual therapy and joint mobilization techniques. OT spent more time with these techniques today. Pt spent more time also performing exercises that focus on improving her web space today. Pt continues to tolerate these well. Pt returned to using one rubber band with 1st DI exercises B today, increasing reps to 100 without pain/discomfort. Pt continues to need occasional vcs for right position and initiation of mvmt, particularly with palmar abd using rubber band. Pt continues to improve per established POC. Reviewed with Patient/Caregiver Goals Patient/Caregiver Understanding Good - Plan Therapy Recommendations Continue with Current Program Amount of Therapy Recommended 1 Month Comment 1-2x/wk Length of Session 45 Minutes Therapeutic Contents Active Range of Motion,Client Education,Functional Activities,Home Exercise Program,Joint Protection, Manual Therapy,Education, Neuromuscular Re-Education, Orthosis,Self-Care,Splinting, Stretching/Flexibility Activities,Therapeutic Activities,Therapeutic Exercises,Modalities Modalities As Needed Types of Modalities Cyrotherapy Additional Types of Modalities PB
--- NOTE | 2024-05-28 10:29 | OT.OP.TRT ---
Visit Care Team Role Provider Type Carly Pena MD Family Provider Physician Primary Care Provider Specialty: Family Practice BOBCAT OPERATOR Address: [facility] [place], [address] Fax: Email: [email or web address] Max Kelley MD Attending Provider Physician Referring Provider Specialty: Orthopedics Orthopedic Surgery Address: [address] [place] [address], [id number] Email: [email or web address] Occupational Therapy Treatment Note OT Outpatient Treatment Note - Adult Start: 04/02/24 10:48 Freq: Status: Active Protocol: Document 05/28/24 09:45 JELANI (Rec: 05/28/24 09:22 JELANI [id number]) OT Outpatient Adult Treatment Note Session Time Visit Start Date 05/28/24 Visit Start Time 09:45 Visit Stop Time 10:14 Visit Information Visit Number 05/24 (10 previous) Plan of Care Dates 05/20/24 - 06/24/24 Insurance Information Medicare Setting Treatment Setting Outpatient Care Visit Type Note Type Treatment Note - Subjective Identification Type Name,ID Wristband Identification Reconciled With Medical Record Observations Pt reports that she was having a nerve like sensation around her CMC joint line and throughout the thumb like it was falling asleep with symptoms greater on the L than the right. Pt reports having increased pain at MP and CMC of L thumb with active adduction of her thumb, rating it at 5-6/10. Pt c/o abdominal pain and asked to end tx early. Chief Complaint(s) Loss of Motion/Stiffness,Pain Effect on Activity,Restricts - Objective Short Term Goals 1. Pt will be I with initial HEP MET 04/30/24 2. Pt will improve retroposition by 1 grade for improved pain free use of thumb. PARTIALLY MET 05/19/24 3. Pt will increase overall ROM of CMC by 10 deg B for improved grasping. 4. Pt will report no pain with opposition MET 05/05/24 [facility] Goals 1. Pt will be I with advanced thumb stability HEP 2. Pt will improve retropostion by 2 grade for improved pain free use of thumb. 3. Pt will increase increase overall ROM of CMC by 20 deg of movement B for improved object manipulation. 4. Pt will report improved perceived function with QuickDash by 15 points or better. - Treatment 1 Descriptor education: Exercises 3 Descriptor retroposition mobilization: Side Both 2 Descriptor web space: web space to web space release (30 sec holds) with active stretch x3 B contract relax into radial abd 15 second hold x 5 reps B [ End ] Side Both 1 Descriptor stability: 1st DI rubber band (2 small bands) x [address] and hold with small clothespin (due to middle joint collapse) 20 sec hold x [address] and hold with graded clothespin (due to middle joint collapse) 20 sec hold x 5 R palmar abd with rubber band x 0 B EPB with rubber band x 0 B EPB closed chain with small ball x 0 B Side Both Manual Therapy Manual Therapy B thumb adductor STM, grade II CMC distraction and oscillation for pain relief, PROM B thumb CMC into palmar abduction and radial abduction as tolerated - Assessment Patient Response to Treatment Excellent Rehabilitation Potential Good Impairments Identified ADLs,Body Mechanics, Coordination/Dexterity, Flexibility,Functional Activities,Pain,Weakness,Range of Motion,Meaningful Activities,Stiffness,Soft Tissue Mobility Progress Towards Goals Good Progress Assessment of Improvement Pt continues to be pleasant and cooperative and eager to participate in therapy. Pt presents with limited web space and tight adductors, and decreased retroposition, benefiting from manual therapy and joint mobilization techniques. Pt continues to tolerate these well. Pt continues to need occasional vcs for right position and initiation of mvmt, particularly with contract relax. Pt tolerated pinch exercise to work on middle joint collapsing. Pt left shortly after this exercise do to complaints of not feeling well and having abdominal pain . Pt continues to be appropriate for skilled OT services. Cont per established POC. Reviewed with Patient/Caregiver Goals Patient/Caregiver Understanding Good - Plan Therapy Recommendations Continue with Current Program Amount of Therapy Recommended 1 Month Comment 1-2x/wk Length of Session 45 Minutes Therapeutic Contents Active Range of Motion,Client Education,Functional Activities,Home Exercise Program,Joint Protection, Manual Therapy,Education, Neuromuscular Re-Education, Orthosis,Self-Care,Splinting, Stretching/Flexibility Activities,Therapeutic Activities,Therapeutic Exercises,Modalities Modalities As Needed Types of Modalities Cyrotherapy Additional Types of Modalities PB
--- NOTE | 2024-06-09 12:20 | OT.OP.TRT ---
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, [address] Fax: Email: [email or web address] Max Kelley MD Attending Provider Physician Referring Provider Specialty: Orthopedics Orthopedic Surgery Address: [address] [place] [address], [address] Email: [email or web address] Occupational Therapy Treatment Note OT Outpatient Treatment Note - Adult Start: 04/02/24 10:48 Freq: Status: Active Protocol: Document 06/09/24 11:34 JELANI (Rec: 06/09/24 12:20 JELANI [id number]) OT Outpatient Adult Treatment Note Session Time Visit Start Date 06/09/24 Visit Start Time 11:35 Visit Stop Time 12:15 Visit Information Visit Number 06/24 (10 previous) Plan of Care Dates 05/20/24 - 06/24/24 Insurance Information Medicare Setting Treatment Setting Outpatient Care Visit Type Note Type Treatment Note - Subjective Identification Type Name,ID Wristband Identification Reconciled With Medical Record Chief Complaint(s) Loss of Motion/Stiffness,Pain Effect on Activity,Restricts - Objective Objective Measurements Pt reports that her L CMC OA splint has been pinching in her webspace. Pt reports that her R hand has less pain than her L in general. Pt reports she is performing her thumb hygiene exercises about three times a week. Short Term Goals 1. Pt will be I with initial HEP MET 04/30/24 2. Pt will improve retroposition by 1 grade for improved pain free use of thumb. PARTIALLY MET 05/19/24 3. Pt will increase overall ROM of CMC by 10 deg B for improved grasping. 4. Pt will report no pain with opposition MET 05/05/24 Long-Term Goals 1. Pt will be I with advanced thumb stability HEP 2. Pt will improve retropostion by 2 grade for improved pain free use of thumb. 3. Pt will increase increase overall ROM of CMC by 20 deg of movement B for improved object manipulation. 4. Pt will report improved perceived function with QuickDash by 15 points or better. - Treatment 1 Descriptor education: Exercises 3 Descriptor retroposition mobilization: 3 min B Side Both 2 Descriptor web space: web space to web space release (30 sec holds) with active stretch x3 B contract relax into radial abd 15 second hold x 5 reps B [ End ] Side Both 1 Descriptor stability: 1st DI rubber band (2 small bands) x [address] and hold with small clothespin (due to middle joint collapse) 20 sec hold x [address] and hold with graded clothespin red (due to middle joint collapse) 20 sec hold x 6 R palmar abd with rubber band x 50 B EPB with rubber band x 30 B EPB closed chain with small ball x 0 B Side Both Manual Therapy Manual Therapy B thumb adductor STM - Assessment Patient Response to Treatment Excellent Rehabilitation Potential Good Impairments Identified ADLs,Body Mechanics, Coordination/Dexterity, Flexibility,Functional Activities,Pain,Weakness,Range of Motion,Meaningful Activities,Stiffness,Soft Tissue Mobility Progress Towards Goals Good Progress Assessment of Improvement Pt continues to be pleasant and cooperative and eager to participate in therapy. Pt continues to present with limited web space and tight adductors, and decreased retroposition, benefiting from manual therapy and joint mobilization techniques. Pt continues to tolerate these well, requiring min vcs for place hold exercise specifically. Pt tolerated pinch exercise to work on middle joint collapsing well, increasing to a red clothespin on the R side. Pt requires vcs to initiate mvmt correctly with tband exercises initially, but once this is initiated she is able to maintain that. Pt continues to be appropriate for skilled OT services. Cont per established POC. Reviewed with Patient/Caregiver Goals Patient/Caregiver Understanding Good - Plan Therapy Recommendations Continue with Current Program Amount of Therapy Recommended 1 Month Comment 1-2x/wk Length of Session 45 Minutes Therapeutic Contents Active Range of Motion,Client Education,Functional Activities,Home Exercise Program,Joint Protection, Manual Therapy,Education, Neuromuscular Re-Education, Orthosis,Self-Care,Splinting, Stretching/Flexibility Activities,Therapeutic Activities,Therapeutic Exercises,Modalities Modalities As Needed Types of Modalities Cyrotherapy Additional Types of Modalities PB
--- NOTE | 2024-06-11 12:24 | OT.OP.TRT ---
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, [address] Fax: Email: [email or web address] Max Kelley MD Attending Provider Physician Referring Provider Specialty: Orthopedics Orthopedic Surgery Address: [address] [place] [address], [address] Email: [email or web address] Occupational Therapy Treatment Note OT Outpatient Treatment Note - Adult Start: 04/02/24 10:48 Freq: Status: Active Protocol: Document 06/11/24 11:36 JELANI (Rec: 06/11/24 12:24 JELANI [id number]) OT Outpatient Adult Treatment Note Session Time Visit Start Date 06/11/24 Visit Start Time 11:30 Visit Stop Time 12:15 Visit Information Visit Number 07/24 (10 previous) Plan of Care Dates 05/20/24 - 06/24/24 Insurance Information Medicare Setting Treatment Setting Outpatient Care Visit Type Note Type Treatment Note - Subjective Identification Type Name Identification Reconciled With Medical Record Observations Pt reports she was able to hold a side plank and down sanford dog. Pt reports she was able to do her weightlifting as well with no real complaints. Pt is wearing her CMC OA splints intermittently. Chief Complaint(s) Loss of Motion/Stiffness,Pain Effect on Activity - Objective Objective Measurements AROM 1st digit: IP R +25 to 52 , L +10 to 61; MP R 0 to 70, L +10 to 70; CMC PA R 35, L 46; CMC RA R 40, L 46 shikhaandji opposition: R 10/10 ( no p!) L 10/10 (no p!); kapandji retroposition: R 2.5/ 4, L 3/4 Short Term Goals 1. Pt will be I with initial HEP MET 04/30/24 2. Pt will improve retroposition by 1 grade for improved pain free use of thumb. PARTIALLY MET 05/19/24 3. Pt will increase overall ROM of CMC by 10 deg B for improved grasping. 4. Pt will report no pain with opposition MET 05/05/24 [employer] Goals 1. Pt will be I with advanced thumb stability HEP 2. Pt will improve retropostion by 2 grade for improved pain free use of thumb. 3. Pt will increase increase overall ROM of CMC by 20 deg of movement B for improved object manipulation. 4. Pt will report improved perceived function with QuickDash by 15 points or better. - Treatment 1 Descriptor education: Exercises 3 Descriptor retroposition mobilization: Side Both 2 Descriptor web space: web space to web space release (30 sec holds) with active stretch x3 B contract relax into radial abd 15 second hold x 5 reps B [ End ] Side Both 1 Descriptor stability: 1st DI rubber band (2 small bands) x place and hold with graded clothespin yellow (due to middle joint collapse) 20 sec hold x [address] and hold with graded clothespin red (due to middle joint collapse) 20 sec hold x 6 R palmar abd with rubber band x 50 B EPB with rubber band x 30 B EPB closed chain with small ball x 15 B Side Both Manual Therapy Manual Therapy B thumb adductor STM; grade II CMC distraction and oscillation - Assessment Patient Response to Treatment Excellent Rehabilitation Potential Good Impairments Identified ADLs,Body Mechanics, Coordination/Dexterity, Flexibility,Functional Activities,Pain,Weakness,Range of Motion,Meaningful Activities,Stiffness,Soft Tissue Mobility Progress Towards Goals Good Progress Assessment of Improvement Pt continues to be pleasant and cooperative and eager to participate in therapy. Pt demonstrates improvements in B IP AROM and some improvement in CMC B. Pt has no pain with opposition for the first time . Pt tolerated pinch exercise to work on middle joint collapsing well, increasing to a yellow clothespin on the L side. Pt requires vcs to initiate mvmt correctly with tband exercises initially, but once this is initiated she is able to maintain that. Pt continues to be appropriate for skilled OT services. Cont per established POC. Reviewed with Patient/Caregiver Goals Patient/Caregiver Understanding Good - Plan Therapy Recommendations Continue with Current Program Amount of Therapy Recommended 1 Month Comment 1-2x/wk Length of Session 45 Minutes Therapeutic Contents Active Range of Motion,Client Education,Functional Activities,Home Exercise Program,Joint Protection, Manual Therapy,Education, Neuromuscular Re-Education, Orthosis,Self-Care,Splinting, Stretching/Flexibility Activities,Therapeutic Activities,Therapeutic Exercises,Modalities Modalities As Needed Types of Modalities Cyrotherapy Additional Types of Modalities PB
--- NOTE | 2024-06-16 12:26 | OT.OP.TRT ---
Visit Care Team Role Provider Type Carly Pena MD Family Provider Physician Primary Care Provider Specialty: Family Practice GAMB CUTTER Address: [address] [place], [address] Fax: Email: [email or web address] Max Kelley MD Attending Provider Physician Referring Provider Specialty: Orthopedics Orthopedic Surgery Address: [address] [place] [address], [address] Email: [email or web address] Occupational Therapy Treatment Note OT Outpatient Treatment Note - Adult Start: 04/02/24 10:48 Freq: Status: Active Protocol: Document 06/16/24 11:34 GRANTLUIS FALEKMARISELA (Rec: 06/16/24 11:39 GRANTLUIS FAJIT [id number]) OT Outpatient Adult Treatment Note Session Time Visit Start Date 06/16/24 Visit Start Time 11:35 Visit Stop Time 12:15 Visit Information Visit Number 08/24 (10 previous) Plan of Care Dates 05/20/24 - 06/24/24 Insurance Information Medicare - Subjective Identification Type Name Identification Reconciled With Medical Record Observations I did yoga and weights this weekend and they did great. Pt reports no discomfort with the yoga and a little with the weights. Pt reports that she has modified where she holds the steering wheel Chief Complaint(s) Loss of Motion/Stiffness,Pain Effect on Activity - Objective Objective Measurements Digital Sales Assistant: R 45, 50, 49 (avg 49.3#; 10.6# gain from eval) ; L 48, 46, 56 (avg 50#; 15# gain from eval) Pinch: lateral R 12# (4# gain) , 10# L (2# gain); pincer R 8. 75#(5.75# gain), L 7.5# (3.5# gain) (p!); 3 jaw R 10# (6# gain), L 8# (2.5# gain) Short Term Goals 1. Pt will be I with initial HEP MET 04/30/24 2. Pt will improve retroposition by 1 grade for improved pain free use of thumb. PARTIALLY MET 05/19/24 3. Pt will increase overall ROM of CMC by 10 deg B for improved grasping. 4. Pt will report no pain with opposition MET 05/05/24 Theater Projectionist Goals 1. Pt will be I with advanced thumb stability HEP MET 2. Pt will improve retropostion by 2 grade for improved pain free use of thumb. 3. Pt will increase increase overall ROM of CMC by 20 deg of movement B for improved object manipulation. 4. Pt will report improved perceived function with QuickDash by 15 points or better. - Exercises 3 Descriptor retroposition mobilization: 4 min B 2 Descriptor web space: web space to web space release (30 sec holds) with active stretch x2 B [ End ] 1 Descriptor stability: 1st DI rubber band (2 small bands) x place and hold with graded clothespin yellow (due to middle joint collapse) 20 sec hold x [address] and hold with graded clothespin red (due to middle joint collapse) 20 sec hold x 6 R palmar abd with rubber band x B EPB with rubber band x 30 B EPB closed chain with small ball x B green tputty thumb to index pinch without middle joint collapse B x5 Manual Therapy Manual Therapy B thumb adductor STM; grade II CMC distraction and oscillation - Assessment Patient Response to Treatment Excellent Rehabilitation Potential Good Impairments Identified ADLs,Body Mechanics, Coordination/Dexterity, Flexibility,Functional Activities,Pain,Weakness,Range of Motion,Meaningful Activities,Stiffness,Soft Tissue Mobility Progress Towards Goals Good Progress Assessment of Improvement Pt continues to be pleasant and cooperative and eager to participate in therapy. Pt demonstrates improvements in all grocery manager and pinch measurements, see objective section for details. Pt has p ! with L pincer pinch. Pt tolerates tputty well for pinch strengthening with minimal to no middle joint collapse (L with > collapse than R). Pt continues to benefit from vcs for initiating movement correctly. Pt with somewhat softer web spaces today but continued limitations in retroposition. Pt continues to be appropriate for skilled OT services. Cont per established POC. Reviewed with Patient/Caregiver Goals Patient/Caregiver Understanding Good - Plan Therapy Recommendations Continue with Current Program Amount of Therapy Recommended 1 Month Comment 1-2x/wk Length of Session 45 Minutes Therapeutic Contents Active Range of Motion,Client Education,Functional Activities,Home Exercise Program,Joint Protection, Manual Therapy,Education, Neuromuscular Re-Education, Orthosis,Self-Care,Splinting, Stretching/Flexibility Activities,Therapeutic Activities,Therapeutic Exercises,Modalities Modalities As Needed Types of Modalities Cyrotherapy Additional Types of Modalities PB
--- NOTE | 2024-06-18 12:40 | OT.OP.TRT ---
Visit Care Team Role Provider Type Carly Pena MD Family Provider Physician Primary Care Provider Specialty: Family Practice PLANT GUARD Address: [address] [place], [address] Fax: Email: [email or web address] Max Kelley MD Attending Provider Physician Referring Provider Specialty: Orthopedics Orthopedic Surgery Address: [address] [place] [address], [address] Email: [email or web address] Occupational Therapy Treatment Note OT Outpatient Treatment Note - Adult Start: 04/02/24 10:48 Freq: Status: Active Protocol: Document 06/18/24 11:40 JELANI (Rec: 06/18/24 12:39 JELANI [id number]) OT Outpatient Adult Treatment Note Session Time Visit Start Date 06/18/24 Visit Start Time 11:40 Visit Stop Time 12:15 Visit Information Visit Number 7/8 (10 previous) Plan of Care Dates 05/20/24 - 06/24/24 Insurance Information Medicare Setting Treatment Setting Outpatient Care Visit Type Note Type Treatment Note - Subjective Identification Type Name Identification Reconciled With Medical Record Observations Pt reports that on Sunday her thumbs ached all day in her thenar eminence. She reports no aching today. Chief Complaint(s) Loss of Motion/Stiffness,Pain Effect on Activity - Objective Objective Measurements Platen Grinder: R 45, 50, 49 (avg 49.3#; 10.6# gain from eval) ; L 48, 46, 56 (avg 50#; 15# gain from eval) Pinch: lateral R 12# (4# gain) , 10# L (2# gain); pincer R 8. 75#(5.75# gain), L 7.5# (3.5# gain) (p!); 3 jaw R 10# (6# gain), L 8# (2.5# gain) AROM 1st digit: IP R +25 to 52 (25 deg gain), L +10 to 61; MP R 0 to 70 (12 deg gain), L +10 to 70 (8 deg gain); CMC PA R 35, L 46 (6 deg gain); CMC RA R 40 (5 deg gain), L 46 (1 deg gain) shikhaandhunter opposition: R 10/10 ( no p!) L 10/10 (no p!) shikhaandhunter retropositon: 2.5/4 R (1/4 on eval c p!), 3/4 L (2/ 4 on eval c p!) Quick Dash 11.4 (40.9 on eval) , Quick Dash Sport 25 (62.5 on eval) Short Term Goals 1. Pt will be I with initial HEP MET 04/30/24 2. Pt will improve retroposition by 1 grade for improved pain free use of thumb. MET 06/18/24 3. Pt will increase overall ROM of CMC by 10 deg B for improved grasping. 4. Pt will report no pain with opposition MET 05/05/24 Mcfp Goals 1. Pt will be I with advanced thumb stability HEP MET 2. Pt will improve retropostion by 2 grade for improved pain free use of thumb. 3. Pt will increase increase overall ROM of CMC by 20 deg of movement B for improved object manipulation. 4. Pt will report improved perceived function with QuickDash by 15 points or better. MET 06/18/24 - Treatment 1 Descriptor education: OT discussed extensively with pt progression of her HEP program for her thumb hygiene. Specifically how to know when she could d/c certain exercises and which exercises she would need to perform for her lifetime. Pt verbalizes understanding. Exercises 3 Descriptor retroposition mobilization: 2 Descriptor web space: [ End ] 1 Descriptor stability: place and hold with graded clothespin red (due to middle joint collapse) 20 sec hold x [address] and hold with graded clothespin red (due to middle joint collapse) 30 sec hold x 6 R EPB with rubber band x 50 B Manual Therapy Manual Therapy B thumb adductor STM; grade II CMC distraction and oscillation - Assessment Patient Response to Treatment Excellent Rehabilitation Potential Good Impairments Identified ADLs,Body Mechanics, Coordination/Dexterity, Flexibility,Functional Activities,Pain,Weakness,Range of Motion,Meaningful Activities,Stiffness,Soft Tissue Mobility Progress Towards Goals Good Progress Assessment of Improvement Pt continues to be pleasant and cooperative and tolerates tx well. Pt verbalizes understanding when/how to determine if she can d/c ex from her HEP. Pt demonstrates I with her HEP. Pt demonstrates improved kapandji retroposition today. Pt verbalizes being ready to d/c to HEP. Pt has made sufficient progress toward goals and is appropriate to d/c at this time. Reviewed with Patient/Caregiver Goals Patient/Caregiver Understanding Good - Plan Therapy Recommendations Discharge to Home Exercise Program,Discharge from Occupational Therapy Comment 1-2x/wk
--- NOTE | 2024-06-18 12:41 | OT.OP.DC ---
Visit Care Team Role Provider Type Carly Pena MD Family Provider Physician Primary Care Provider Address: [facility] [place], [address] Fax: Email: [email or web address] Max Kelley MD Attending Provider Physician Referring Provider Address: [address] [place] [address], [address] Email: [email or web address] [email or web address] Outpatient Adult Evaluation Start: 04/02/24 10:48 Freq: Status: Active Protocol: Document 04/02/24 10:49 JELANI (Rec: 04/02/24 13:46 JELANI [id number]) General Information - Adult Visit Information Visit Number 1 Plan of Care Dates 04/02/24 - 05/28/24 Insurance Information Medicare Session Time Visit Start Date 04/02/24 Visit Start Time 10:45 Visit Stop Time 11:30 Setting Treatment Setting Outpatient Care Visit Type Note Type Initial Evaluation Referral Referring Physician aMx Kelley Reason for Referral OA B 1st CMC, OA B wrist Identification Identification Confirmed Yes Identification Confirmed By name, MR Medical Information Medical History OA, fibromyalgia, headaches, jaw reconstruction sx, R medial knee sx, ankle/heel sx Patient Questionnaires Quick Dash- Upper Extremity Quick Dash UE Score 40.9 Quick Dash UE Impairment 40 to 59% Impaired (Score 40- 59) Quick Dash- Work and Sports Modules Quick Dash W&S Score W 50, S 62.5 Quick Dash Work and Sport Impairment 60 to 79% Impaired (Score 60- 79) Goals Objective Measurements Objective Measurements AROM 1st digit: IP R +10 to 42 , L +10 to 61; MP R -12 to 70, L 0 to 72; CMC PA R 35, L 40; CMC RA R 35, L 45 Wrist WFL all planes of mvmt Vinod measure: opposition R 10/10 (c p!), L 10/10 (c p!); retroposition R 1/4 (c p!), L 2/4 (c p!) Vilma R +, L - Froment's R +, L + Grind test R - L - UCL no laxity noted CMC no laxity noted, p! with assessing B Crystal Lapper: R 37, 37, 42 (avg 38.7#) ; L 35, 35, 35 (avg 35#) Pinch: lateral R 8#, L 8#; pincer R 3#, L 4#; 3 jaw R 4#, L 5.5# Treatment Treatment Pt educated on the importance of proper joint alignment. Pt has reduced webspacing, tx consisted of web space release . Pt educated on how to perform manually or with a clip. Pt should build up to 3- 5 minute hold on both hands. Pt then educated on web space release for skin and fascia, to be repeated 5-10 times. Finally pt performs butterfly retproposition mobilization to be held 3-5 minutes. Short Term Goals Short Term Goals 1. Pt will be I with initial HEP 2. Pt will improve retroposition by 1 grade for improved pain free use of thumb. 3. Pt will increase overall ROM of CMC by 10 deg B for improved grasping. 4. Pt will report no pain with opposition Snf Goals Snf Goals 1. Pt will be I with advanced thumb stability HEP 2. Pt will improve retropostion by 2 grade for improved pain free use of thumb. 3. Pt will increase increase overall ROM of CMC by 20 deg of movement B for improved object manipulation. 4. Pt will report improved perceived function with QuickDash by 15 points or better. 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 Pt reports having B cortisone injections 6 weeks ago. Pt reports relief last three weeks until she had her first client. Pt reports that she has constant pain and describes her pain as constant and at times stabbing. At times pt?s pain cant? be ignored (08/26) and is otherwise 1-2/10. 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 Pt also enjoys weight lifting and yoga . Pt weight lifts both with free weights and weighted machine. She reports having to change her hand position with many weighted activities as she is not able to grab around the bars. Pt reports difficulty with using her hands for all household and BADL tasks. See above for perceived limitations with respect to QuickDash. Pt reports having no difficulty with typing tasks. On observation, pt?s B thumbs have increased CMC adduction, MCP hyper-extension and IP hyper-extension. When taking goniometric measurements, pt self corrects initial hyper- extension position. Pt is tender on palpation of entire CMC joint B with R>L for p!. Pt has significant limitation in retroposition B with R > L. Pts 1st metacarpal seems to have subluxed volarly on trapezium. Skilled OT services are appropriate to assist pt in improved thumb stability and joint mechanics , educate on activity modification and taping or splint wearing, joint mobilization, strengthening, neuromuscular re-education, pain mgmt., and improved BADL/ IADL tasks. Reviewed with Patient Goals,Home Exercise Program Patient Understanding Excellent Plan Length of treatment (weeks) 8 Plan of Care Start Date 04/02/24 Plan of Care End Date 05/28/24 Treatment Frequency Twice a Week Treatment Duration 45 Minutes Therapeutic Contents Active Range of Motion,Client Education,Functional Activities,Home Exercise Program,Joint Protection, Manual Therapy,Education, Neuromuscular Re-Education, Orthosis,Self-Care,Splinting, Stretching/Flexibility Activities,Therapeutic Activities,Therapeutic Exercises,Modalities Modalities As Needed Types of Modalities Cyrotherapy Additional Types of Modalities PB Patient Instruction Home Exercise Program,Plan of Care,Questions/Concerns Functional Wrist/Hand Scan Hand Side Sensory Assessment Sensory Profile2 OT Outpatient Discharge Note - Adult Start: 04/02/24 10:48 Freq: Status: Active Protocol: Document 06/18/24 11:40 JELANI (Rec: 06/18/24 12:39 JELANI [id number]) OT Outpatient Adult Discharge Note Session Time Visit Start Date 06/18/24 Visit Start Time 11:40 Visit Stop Time 12:15 Visit Information Visit Number 09/23 (10 previous) Plan of Care Dates 05/20/24 - 06/24/24 Insurance Information Medicare Setting Treatment Setting Outpatient Care Visit Type Note Type Discharge Note - Subjective Identification Type Name Identification Reconciled With Medical Record Observations Pt reports that on Sunday her thumbs ached all day in her thenar eminence. She reports no aching today. Chief Complaint(s) Loss of Motion/Stiffness,Pain Effect on Activity - Objective Objective Measurements Crystal Lapper: R 45, 50, 49 (avg 49.3#; 10.6# gain from eval) ; L 48, 46, 56 (avg 50#; 15# gain from eval) Pinch: lateral R 12# (4# gain) , 10# L (2# gain); pincer R 8. 75#(5.75# gain), L 7.5# (3.5# gain) (p!); 3 jaw R 10# (6# gain), L 8# (2.5# gain) AROM 1st digit: IP R +25 to 52 (25 deg gain), L +10 to 61; MP R 0 to 70 (12 deg gain), L +10 to 70 (8 deg gain); CMC PA R 35, L 46 (6 deg gain); CMC RA R 40 (5 deg gain), L 46 (1 deg gain) shikhaandhunter opposition: R 10/10 ( no p!) L 10/10 (no p!) shikhaandhunter retropositon: 2.5/4 R (1/4 on eval c p!), 3/4 L (2/ 4 on eval c p!) Quick Dash 11.4 (40.9 on eval) , Quick Dash Sport 25 (62.5 on eval) Short Term Goals 1. Pt will be I with initial HEP MET 04/30/24 2. Pt will improve retroposition by 1 grade for improved pain free use of thumb. MET 06/18/24 3. Pt will increase overall ROM of CMC by 10 deg B for improved grasping. 4. Pt will report no pain with opposition MET 05/05/24 Booking Manager Goals 1. Pt will be I with advanced thumb stability HEP MET 2. Pt will improve retropostion by 2 grade for improved pain free use of thumb. 3. Pt will increase increase overall ROM of CMC by 20 deg of movement B for improved object manipulation. 4. Pt will report improved perceived function with QuickDash by 15 points or better. MET 06/18/24 - Assessment Patient Response to Treatment Excellent Rehabilitation Potential Good Impairments Identified ADLs,Body Mechanics, Coordination/Dexterity, Flexibility,Functional Activities,Pain,Weakness,Range of Motion,Meaningful Activities,Stiffness,Soft Tissue Mobility Progress Towards Goals Good Progress Assessment of Improvement Pt has made excellent functional progress since beginning skilled OT services for her B thumbs. 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 OT and pt discussed staggering client schedules and assessing whether the task is causing pt to have joint p! vs muscle fatigue in order to decide if this is a job she wants to continue. Pt verbalizes understanding. Pt demonstrates I with her HEP and after extensive conversation with OT, understands how to decide if any of the exercises can be d/ c in the future. Pt reports no p! during todays tx. Pt has made improvements in ROM and editor trade journal/pinch strength, see objective section for specific improvements. Pt has made sufficient progress for d/c from skilled OT services to HEP. Reviewed with Patient/Caregiver Goals Patient/Caregiver Understanding Good - Plan Therapy Recommendations Discharge to Home Exercise Program,Discharge from Occupational Therapy Comment 1-2x/wk
== END 2024-06-19 10:34 | disposition home or self-care (01) ==
LOC: OT 11:30
PROVIDERS: Family Provider Family Medicine; PCP Family Medicine; Referring Provider Orthopaedic Surgery; Visit Provider Orthopaedic Surgery
DX: M18.10 Unilateral primary osteoarthritis of first carpometacarpal joint, unspecified hand (principal); M19.031 Primary osteoarthritis, right wrist; M19.032 Primary osteoarthritis, left wrist
CPT/HCPCS: 97110; 97140; 97165; 97530

== ENCOUNTER → 2024-06-24 18:34 | Outpatient (CLI) | payer MEDICARE, OTHER, SELFPAY ==
--- NOTE | 2024-06-24 18:39 | DI.MRI.S_ITS ---
PROCEDURE: MR ANKLE RT WO CON INDICATIONS: ankle pain TECHNIQUE: Noncontrast sagittal T1 spin echo and T2 fast spin echo with fat saturation, axial proton density fast spin echo and T2 fast spin echo with fat saturation, coronal T1 spin echo and T2 fast spin echo with fat saturation through the ankle/hindfoot. COMPARISON: [facility] [place], [place], XR ANKLE 3 VIEWS WEIGHT BEARING RIGHT, 03/07/2024, 11:52. FINDINGS: Image quality: Excellent Tendons: Mild tenosynovitis of the posterior tibialis. The flexor digitorum longus, and the flexor hallucis longus are unremarkable. The extensor tendons are unremarkable. Longitudinal split tear of the peroneal brevis. The peroneal longus tendon is unremarkable. Mild tenosynovitis of the peroneal tendons. Marked tendinosis of the distal Achilles tendon, without tear. Ligaments: The anterior and the posterior tibiofibular ligaments are intact. The anterior and the posterior talofibular ligaments are intact. The calcaneofibular ligament is intact. The deep portion of the deltoid ligament is unremarkable. Sinus tarsi : no fibrosis Plantar fascia: unremarkable Muscles: Normal in signal Bones: Mild degenerative changes of the posterior subtalar joint, with mild subchondral cystic changes and marrow edema. Mild degenerative changes of the middle subtalar joint, with mild subchondral cystic changes and marrow edema. Mild degenerative changes of the midfoot, with scattered mild subchondral marrow edema and cystic changes. No acute fracture. There is a small ossification anterior to the medial malleolus (05:18), representing prior injury. Small effusion within the the talonavicular articulation. Small tibiotalar and small posterior subtalar effusion. Multiple small ganglion cyst in the midfoot. IMPRESSION: 1. Longitudinal split tear of the peroneal brevis. 2. Marked tendinosis of the distal Achilles tendon, without tear. 3. Mild degenerative changes of the posterior subtalar joint and of the middle subtalar joint. 4. Mild degenerative change of the midfoot. Dictated by: Cristal Rider M.D. on 06/25/2024 at 10:04 Approved by: Cristal Rider M.D. on 06/25/2024 at 10:17
== END ==
PROVIDERS: Family Provider Family Medicine; PCP Family Medicine; Referring Provider Orthopaedic Surgery Foot and Ankle Surgery; Visit Provider Orthopaedic Surgery Foot and Ankle Surgery
DX: S96.811A Strain of other specified muscles and tendons at ankle and foot level, right foot, initial encounter (principal); M25.571 Pain in right ankle and joints of right foot
CPT/HCPCS: 73721

== ENCOUNTER → 2024-09-25 10:16 | Outpatient (CLI) | payer MEDICARE, OTHER, SELFPAY ==
--- NOTE | 2024-09-25 10:18 | DI.NM.S_ITS ---
PROCEDURE: NM BONE 3 PHASE RADIOPHARMACEUTICAL: 18.4 mCi Tc-99m MDP IV. INDICATIONS: pain in right knee TECHNIQUE: Multiple bone scintigrams were obtained after intravenous injection of Tc-99m MDP, including flow, blood pool, and delayed images centered to the region of interest. COMPARISON: [facility] [place], CR, XR KNEE 4+ VIEWS RIGHT, 08/25/2024, 16:52. FINDINGS: Symmetric appearing flow and blood pool images to the lower extremities. On delayed images, moderate focal uptake is seen surrounding the medial knee arthroplasty, particularly the tibial component. There is also moderate uptake involving the patella. Minimal, likely degenerative uptake is seen surrounding the left knee, which showed arthrosis on the prior radiograph. IMPRESSION: Moderate uptake surrounding the medial knee arthroplasty on the right, without flow or blood pool asymmetry. Findings may represent early loosening versus postsurgical changes, without significant infection or inflammation. Likely degenerative uptake seen surrounding the left knee. Dictated by: Nigel Gonzalez M.D. on 09/25/2024 at 16:47 Approved by: Nigel Gonzalez M.D. on 09/25/2024 at 16:48
== END ==
LOC: NUCM 10:17
PROVIDERS: Family Provider Family Medicine; PCP Family Medicine; Referring Provider Orthopaedic Surgery Foot and Ankle Surgery; Visit Provider Orthopaedic Surgery Foot and Ankle Surgery
DX: M25.561 Pain in right knee (principal); Z96.651 Presence of right artificial knee joint
CPT/HCPCS: 78315; A9503

== ENCOUNTER → 2024-12-18 09:21 | Outpatient (CLI) | payer MEDICARE, OTHER, SELFPAY ==
[2024-12-18 10:36] LABS: Hematocrit 45.9 % (36-46); Hemoglobin 15.3 g/dL (12.0-16.0); Mean Corpuscular HGB Conc 33.3 % (30-36); Mean Corpuscular Hemoglobin 31.5 PG (26-34); Mean Corpuscular Volume 94.7 fL (80-100); Platelet Count 406 X10^3/uL (150-400)
[2024-12-18 11:08] LABS: Cholesterol 181 mg/dL (140-199); HDL Cholesterol 60 mg/dL (40-60); Triglycerides 72 mg/dL (35-150)
== END ==
PROVIDERS: PCP Family Medicine; Referring Provider Family Medicine; Visit Provider Family Medicine
DX: I10 Essential (primary) hypertension (principal); Z79.890 Hormone replacement therapy; Z13.220 Encounter for screening for lipoid disorders
CPT/HCPCS: 80061; 85027

== ENCOUNTER 2025-01-01 12:37 | Day surgery (SDC) | payer MEDICARE, OTHER, SELFPAY ==
--- NOTE | 2025-01-01 07:21 | PM.HP.IH.1 ---
History of Present Illness History of Present Illness Date Patient Seen: 01/01/25 Time Patient Seen: 07:21 Chief complaint: SDC Narrative: 64yo F presents for screening colonoscopy today. [facility] Medical History (Updated 01/01/25 @ 07:22 by Beau Nolen MD) Shingles Pneumothorax (~2002) Headache Knee pain Shoulder pain Fractures Foot pain Fibromyalgia Carpal tunnel syndrome Ankle pain Postmenopausal HRT (hormone replacement therapy) Surgical History (Updated 10/22/24 @ 10:59 by Ruthie Wu MA) Seney teeth removed History of appendectomy (12/18/99) Anesthesia History of mandibular surgery (~1997) History of hernia repair (~1998) History of ankle surgery (~2017) History of oophorectomy (~2016) Status post breast reduction (~11/2019) History of partial knee replacement (~04/2021) History of abdominoplasty (~11/2022) History of hysterectomy (~2004) Family History (Updated 05/29/23 @ 21:07 by Lovely Kc) Father Cancer Mother Renal failure Grandfather Dementia Grandmother History of heart disease Meds Home Medications and Allergies Home Medications ?Medication ?Instructions ?Recorded ?Confirmed ?Type omeprazole 20 mg tablet,delayed 20 mg PO DAILY #90 tabs 05/15/23 04/25/24 Rx release cyclobenzaprine 10 mg tablet 10 mg PO ONCE PM PRN for muscle 10/22/24 10/22/24 Rx spasm #90 tabs estradiol-testosterone 1 unit sublingual DAILY #90 caps 10/22/24 10/22/24 Rx ondansetron 4 mg disintegrating 4 mg PO Q8H PRN nausea and 10/22/24 10/22/24 Rx tablet vomiting #30 tabs progesterone micronized 100 mg 100 mg PO QAM #90 caps 10/22/24 10/22/24 Rx capsule valacyclovir 1 gram tablet 1,000 mg PO 3XD #21 tabs 10/22/24 10/22/24 Rx sodium,potassium,mag sulfates 17.5 See Rx Instructions PO .COMPLEX 12/01/24 Rx gram-3.13 gram-1.6 gram oral soln #354 mL (Suprep Bowel Prep Kit) Allergies Allergy/AdvReac Type Severity Reaction Status Date / Time No Known Drug Allergies Allergy Verified 10/22/24 10:52 Exam Narrative Exam Narrative: Const General: healthy appearing, comfortable and no acute distress Orientation: alert and oriented x3 HENMT Ears: hearing grossly normal bilaterally Eyes Visual Seals: normal visual seals by confrontation Conjunctivae: conjunctivae normal Sclera: sclerae normal EOM: EOM intact bilaterally Resp Effort & Inspection: normal respiratory effort and able to speak in complete sentences Cardio Rate: regular rate GI Palpation: soft (NT) Extrem General: no pedal edema and no calf tenderness Assessment & Plan Assessment and plan (1) Encounter for screening colonoscopy: Status: Acute Plan Plan screening colonoscopy, possible polypectomy. The risks, benefits and options regarding the procedure were explained to the patient in detail. Risk discussion included but not limited to: bleeding, perforation, unable to reach cecum, missed lesion. The patient was encouraged to ask questions and they were answered to their satisfaction. The patient understands and is agreeable to proceed. Time-Based Coding :: [TOTAL MINUTES] spent with patient and on the chart (including review of chart, obtaining history, exam, reviewing outside data, placing orders, documenting exam and treatment plan, and counseling patient) on [DATE]. 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
[2025-01-01 12:50] VITALS: PULSE 70; RESP 20; TEMP 36.8; O2SAT 98
--- NOTE | 2025-01-01 12:55 | P.OP.COLON_ITS ---
Operative Date/Time/Diagnoses Date of procedure: 01/01/25 Time of procedure: 14:01 Pre-op diagnosis: Screening colonoscopy Post-op diagnosis: same Procedure & Clinicians Study performed: Screening colonoscopy Same procedure(s) as scheduled: Yes Indications: 64yo F screening colonoscopy Surgeon: Beau Nolen Anesthesia Type: MAC +/- Procedure Notes SCOAP/Timeout: Performed Procedure in detail: Colonoscopy Patient placed in left lateral recumbent position. Time out was performed. Procedural sedation was administered by anesthesia. Examination began with a th orough inspection of the perianal area. There was no evidence of fissures, fistulae, external hemorrhoids or cutaneous malignancy. The colonoscope was then placed into the rectum and the lumen was insufflated with carbon dioxide. The scope was carefully advanced forward. Ultimately the cecum was intubated and confirmed by identification of the ileocecal valve, the appendiceal orifice and the confluence of the taenia. The scope was then slowly withdrawn examining the colon thoroughly in all directions. In the rectum, retroflexion of the scope was performed for inspection of the distal rectum and anal canal. ?Significant colonoscopy findings: ?1. Quality of the preparation-good, [place] 2-3, improved with irrigation/suction ?2. Normal colonoscopy, no polyps, masses, strictures. Colon tortuous and redundant, required position changes and abdominal pressure for looping Scope withdrawal time: 6 minutes Specimen(s): none sent Complications: none Impression: Normal screening colonoscopy Post-procedure Recommendations: Colonoscopy in 10 years Plan for aftercare: PACU then home Follow up: as needed Disposition: PACU
[2025-01-01 13:57] VITALS: BP 121/68; PULSE 63; RESP 14; TEMP 36.1; O2SAT 96
[2025-01-01 14:02] VITALS: BP 118/78; PULSE 62; RESP 14; O2SAT 96
[2025-01-01 14:07] VITALS: BP 119/71; PULSE 60; RESP 14; O2SAT 97
[2025-01-01 14:13] VITALS: BP 135/68; PULSE 60; RESP 14; TEMP 36.1; O2SAT 98
[2025-01-01] MEDS: LACTATED RINGERS 1,000 ML 42 ML IV (14:15)
== END 2025-01-01 15:50 | disposition home or self-care (01) ==
PROVIDERS: PCP Family Medicine; Referring Provider Family Medicine; Visit Provider Surgery
PROC: 0DJD8ZZ Inspection of Lower Intestinal Tract, Via Natural or Artificial Opening Endoscopic (ICD-10-PCS; CPT 45378; principal; 2025-01-01 13:45)
DX: Z12.11 Encounter for screening for malignant neoplasm of colon (principal)
CPT/HCPCS: G0121; J2704; J7120